=== PATIENT | female | born 1955 | race African-American/Black ===

== ENCOUNTER 2021-01-08 15:11 | Emergency (ER) | payer OTHER ==
[2021-01-08 15:17] VITALS: BP 155/78; PULSE 68; TEMP 98; BMI 37.3
== END 2021-01-08 17:21 | disposition home or self-care (01) ==
LOC: JERFT 15:11
DX: M25.532 Pain in left wrist (principal); M25.512 Pain in left shoulder; W19.XXXA Unspecified fall, initial encounter
CPT/HCPCS: 73030-TC-LT-FY; 73562-TC-LT-FY; 99284-25